=== PATIENT | female | born 1950 | race Caucasian/White ===

== ENCOUNTER 2020-08-04 11:55 | Observation (INO) ==
[2020-08-04 12:58] LABS: Basophils % 0.5 %; Eosinophils % 0.5 %; Hematocrit 46.3 % (35.3-44.9); Hemoglobin 15.6 g/dL (11.5-15.4); Lymphocytes # 2.3 K/mcL (0.6-4.6); Lymphocytes % 55.3 %; Mean Corpuscular HGB Conc 33.7 g/dL (31.6-35.5); Mean Corpuscular Hemoglobin 31.4 pg (28.0-33.3); Mean Corpuscular Volume 93.2 fL (83.0-100.0); Monocytes # 0.5 K/mcL (0.0-1.3); Monocytes % 11.4 %; Neutrophils # 1.4 K/mcL (1.6-8.9); Platelet Count 171 K/mcL (140-400); Red Blood Count 4.97 M/mcL (3.82-4.97); Red Cell Distribution Width 12.1 % (11.5-14.5); Segmented Neutrophils % 32.3 %; White Blood Count 4.2 K/mcL (4.3-11.1)
[2020-08-04] MEDS ORDERED: Aspirin 325 MG TABLET PO ONE (13:16)
[2020-08-04] MEDS ORDERED: *HR* Metoprolol 5 MG/5 ML VIAL IVP ONE (13:16)
[2020-08-04 13:18] LABS: BUN/Creatinine Ratio 14 (6-26); Blood Urea Nitrogen 14 mg/dL (8-23); Calcium 9.5 mg/dL (8.6-10.3); Carbon Dioxide 28 mEq/L (23-29); Chloride 103 mEq/L (98-107); Glucose 91 mg/dL (70-105); Magnesium 1.8 mg/dL (1.6-2.6); Osmolality,Calculated 290 (280-300); Potassium 4.2 mEq/L (3.5-5.1); Sodium 140 mEq/L (136-145); eGFR For African Americans > 60 (> 60); eGFR For Non-African Americans 54 (> 60)
[2020-08-04 13:19] LABS: Troponin I < 0.03 ng/mL (< 0.04)
[2020-08-04] MEDS ORDERED: Naloxone 0.4 MG/ML INJ IVP PRN (14:15)
[2020-08-04] MEDS ORDERED: Perflutren Lipid Microsphere 1.3 ML in 0.9 % Sodium Chloride 8.7 ML IVP PRN (14:17)
[2020-08-04 15:12] LABS: Phosphorous 2.6 mg/dL (2.7-4.5)
[2020-08-04] MEDS: carvediloL 6.25 MG TABLET PO SCH (17:40)
[2020-08-04] MEDS: Apixaban 5 MG TABLET PO SCH (20:27)
[2020-08-05 00:37] LABS: Basophils % 0.3 %; Eosinophils % 0.5 %; Hematocrit 42.6 % (35.3-44.9); Immature Granulocytes % 0.3 % (0-4); Lymphocytes # 1.8 K/mcL (0.6-4.6); Lymphocytes % 47.2 %; Mean Corpuscular HGB Conc 32.9 g/dL (31.6-35.5); Mean Corpuscular Hemoglobin 30.6 pg (28.0-33.3); Mean Corpuscular Volume 93.2 fL (83.0-100.0); Mean Platelet Volume 10.3 fL (9.4-12.4); Monocytes # 0.5 K/mcL (0.0-1.3); Monocytes % 12.4 %; Neutrophils # 1.5 K/mcL (1.6-8.9); Platelet Count 170 K/mcL (140-400); Red Blood Count 4.57 M/mcL (3.82-4.97); Red Cell Distribution Width 12.1 % (11.5-14.5); Segmented Neutrophils % 39.3 %; White Blood Count 3.7 K/mcL (4.3-11.1)
[2020-08-05 00:42] LABS: INR 1.3; Prothrombin Time 14.4 Seconds (9.4-12.1)
[2020-08-05 00:43] LABS: Activated Partial Thrombo Time 34.3 Seconds (26.0-36.0)
[2020-08-05 01:15] LABS: Alanine Aminotransferase 16 Units/L (7-52); Albumin 3.8 g/dL (3.5-5.7); Albumin/Globulin Ratio 1.4 (1.1-2.2); Alkaline Phosphatase 71 Units/L (34-104); Aspartate Amino Transferase 20 Units/L (13-39); BUN/Creatinine Ratio 16 (6-26); Bilirubin,Total 0.4 mg/dL (0.3-1.0); Blood Urea Nitrogen 16 mg/dL (8-23); Carbon Dioxide 28 mEq/L (23-29); Chloride 106 mEq/L (98-107); Globulin 2.7 g/dL (2.4-3.5); Glucose 100 mg/dL (70-105); Magnesium 1.8 mg/dL (1.6-2.6); Osmolality,Calculated 291 (280-300); Potassium 4.2 mEq/L (3.5-5.1); Sodium 140 mEq/L (136-145); Total Protein 6.5 g/dL (6.4-8.9); eGFR For African Americans > 60 (> 60); eGFR For Non-African Americans 54 (> 60)
[2020-08-05] MEDS ORDERED: Aspirin 81 MG TAB.CHEW PO SCH (09:00)
[2020-08-05] MEDS ORDERED: Loratadine 10 MG TABLET PO SCH (09:00)
[2020-08-05] MEDS: carvediloL 6.25 MG TABLET PO SCH ×2 (09:17→09:19)
[2020-08-05] MEDS: Apixaban 5 MG TABLET PO SCH (09:17)
[2020-08-05 11:25] VITALS: BP 110/72
== END 2020-08-05 14:58 | disposition home or self-care (01) ==
LOC: EMEROOARM 11:55 → 3BNU 11:55
PROVIDERS: ADMIT Internal Medicine; ATTEND Internal Medicine